=== PATIENT | male | born 1940 | race Caucasian/White ===

== ENCOUNTER 2017-08-14 10:31 | Inpatient (IN) | payer OTHER ==
--- NOTE | 2017-08-14 11:20 | EDPHY ---
H & P Stated Complaint: Weakness for last 2 weeks and fell last night not able to get up HPI/ROS: CHIEF COMPLAINT: Weakness, fall HISTORY OF PRESENT ILLNESS: The patient is a 77 y/o male arriving via EMS complaining of weakness and a fall 2 days ago with prolonged down time. He was ill 2 weeks ago and was seen at [facility]; they told him he may have pneumonia or influenza and prescribed him pain medication to help with pleurisy and home O2 for shortness of breath. Two days ago he stood up from the couch and his legs were so weak he collapsed. He has been on the floor for almost 48 hours until he was found by bystanders today. He was able to crawl around somewhat and reached his open back door and yelled whenever he heard someone nearby until he was found. He has not eaten or used any of his medications during this time. He currently feels extremely weak and as if his breathing is "raspy". He complains of some coccyx pain and also states he and hasn't had a bowel movement for 4 days. His chronic lumbar back pain feels worse as well. He denies vomiting, diarrhea, fever, abdominal pain, headache, unilateral weakness or numbness. REVIEW OF SYSTEMS: A ten point review of systems was performed and is negative with the exception of the items mentioned in the HPI. Past medical history: 1. Hypertension 2. Anemia 3. Diabetes - insulin dependent 4. Hypercholesterolemia 5. RI 2011 6. GERD 7. Back pain Past surgical history: 1. Retinal surgery 2. Orthopedic surgery right arm 3. LAD stent Family history: Noncontributory Social history: Former smoker 35 years ago. PCP: [facility] Prior medical records reviewed including cardiology notes 02/01/12 for RI. General Appearance: Alert. Vital signs reviewed. Blood pressure 170/90, pulse ox 90%. Head: Normocephalic atraumatic. Eyes: Pupils equal and round, no conjunctival injection, no discharge. Anicteric. ENT, Mouth: Mucous membranes are dry, no oropharyngeal erythema or edema. Neck: No lymphadenopathy, supple. Trachea midline. Respiratory: Lungs are have rales at the right base. No wheezes. Cardiovascular: Regular rate and rhythm; no murmur, rub, or gallop. Gastrointestinal: Abdomen is soft, mild RUQ tenderness, no masses or organomegaly, bowel sounds normal. Rectal: Good tone, hard stool in rectal vault, no rikki blood. Skin: Warm and dry, no rashes on exposed skin, normal color. Back: Abrasion on both sides of coccyx. Tenderness over lumbar spine, which patient reports is baseline for him. No CVAT. Extremities: Abrasion to anterior distal right tibia, abrasion right knee, abrasion right foot. No lower extremity edema, no calf tenderness or swelling. Neurological: Alert and oriented. Moving all four extremities, but reduced strength in both legs. Against gravity strength both lower extremities. Facial symmetry. Tongue midline. EOMI. No slurred speech. Psychiatric: Normal affect. - Personal History Current Tetanus/Diphtheria Vaccine: Unsure Current Tetanus Diphtheria and Acellular Pertussis (TDAP): Unsure - Medical/Surgical History Hx Asthma: No Hx Chronic Respiratory Disease: No Hx Diabetes: Yes Hx Cardiac Disease: Yes Hx Renal Disease: No Hx Cirrhosis: No Hx Alcoholism: No Hx HIV/AIDS: No Hx Splenectomy or Spleen Trauma: No Other PMH: RI, Stents, DM - Social History Smoking Status: Former smoker Constitutional: Initial Vital Signs Temperature (C) 35.6 C L 08/14/17 10:30 Heart Rate 102 H 08/14/17 10:30 Respiratory Rate 16 08/14/17 10:30 Blood Pressure 170/90 H 08/14/17 10:30 O2 Sat (%) 90 L 08/14/17 10:30 O2 Delivery Mode Nasal Cannula O2 (L/minute) 5 Allergies/Adverse Reactions: No Known Allergies Allergy (Verified 08/14/17 18:14) Home Medications: Medication Instructions Recorded Aspirin [Aspirin 81mg (OTC)] 81 mg PO DAILY 02/02/12 Furosemide [Lasix 20 MG (RX)] 20 mg PO DAILY 02/02/12 Insulin Glargine [Lantus 100 15 units SC HS 02/02/12 UNITS/ML (RX)] Lisinopril [Zestril 40 mg (RX)] 40 mg PO DAILY 02/02/12 Omeprazole [Prilosec 20 mg] 20 mg PO DAILY@0800 02/02/12 Pravastatin Sodium 40 mg PO HS 02/02/12 amLODIPine BESYLATE [Norvasc 10 mg 10 mg PO DAILY 02/02/12 (RX)] metFORMIN HCL [Glucophage 1000 mg] 1,000 mg PO BID 02/02/12 oxyCODONE/APAP 5325 [Percocet 1 tab PO Q6 PRN 02/02/12 5325 (RX)] Medical Decision Making ED Course/Re-evaluation: This is a 77 y/o male with cardiac disease history and diabetes who was found down today by a good Cheondoism after falling, reportedly due to bilateral leg weakness, 2 days ago. He complains of worsening weakness and dyspnea over the last 2 weeks since possible pneumonia/flu illness, coccyx pain since the fall, and worsening chronic lumbar back pain since the fall. He has superficial abrasions to his right lower leg and alongside his coccyx bilaterally. His lower legs have significantly decreased strength and he is dehydrated. Plan for IV, labs, EKG, chest and lumbar spine x-rays. 1L IV NS administered. Patient will require admission as he is too weak to care for himself at home alone. K elevated at 6.4, creatinine elevated at 2.6, BGL elevated at 346. The 12 lead EKG was interpreted by myself. Sinus rhythm. IVCD. See hard copy and /or "tracemaster" electronic copy for interpretation. Spoke with hospitalist service. Dr. Boogie accepts admission for weakness, hyperglycemia, hyperkalemia, and inability to care for himself at home. Patient received IV fluids in the emergency department for dehydration. He is hyperglycemic and hyperkalemic. He is an insulin-dependent diabetic and will receive insulin. He tells me that he is been diagnosed with a pneumonia within the month. He was started on oxygen at the time of this diagnosis, had not previously used oxygen. His chest x-ray shows what appears to be pneumonia/ atelectasis. It is not clear whether the pneumonia accounts for his hypoxia or whether there is another underlying process such as pulmonary embolus. Given his compromised renal function he cannot undergo CT angiogram. Differential Diagnosis: I considered a differential diagnosis that includes but is not limited to pulmonary infectious process, COPD, asthma, pulmonary embolus and congestive heart failure, rhabdomyolysis, fracture, renal failure acute on chronic. - Data Points Laboratory Results: Laboratory Results 08/14/17 10:30 08/14/17 10:30 Medications Given: Acetaminophen (Tylenol) 650 mg PO Q4HRS PRN PRN Reason: Pain, Mild/Fever, Can Take PO Stop: 02/10/18 13:39 Last Admin: 08/14/17 17:36 Dose: 650 mg Heparin Sodium (Porcine) (Heparin Sc Injection) 5,000 unit SC Q8HRS FARZANA Stop: 02/10/18 13:59 Last Admin: 08/15/17 14:24 Dose: 5,000 unit Azithromycin 500 mg/ Dextrose 255 mls @ 255 mls/hr IV DAILY FARZANA PRN Reason: Protocol Stop: 09/13/17 14:59 Last Admin: 08/15/17 09:54 Dose: 255 mls Ceftriaxone Sodium/Dextrose (Rocephin 1 Gm (Premix)) 50 mls @ 100 mls/hr IV DAILY FARZANA PRN Reason: Protocol Stop: 09/13/17 14:59 Last Admin: 08/15/17 10:08 Dose: 50 mls Dextrose (D5w) 1,000 mls @ 75 mls/hr IV CONT FARZANA Stop: 02/11/18 06:29 Last Admin: 08/15/17 06:35 Dose: 1,000 mls Insulin Glargine (Lantus Syringe) 5 units SC DAILY FARZANA Stop: 02/10/18 13:44 Last Admin: 08/15/17 10:00 Dose: 5 units Insulin Human Lispro (Humalog Lispro) 0 unit SC TIDMEAL FARZANA PRN Reason: Protocol Stop: 02/10/18 17:59 Last Admin: 08/15/17 14:24 Dose: 4 units Polyethylene Glycol (Miralax) 17 gm PO DAILY PRN; Protocol PRN Reason: Constipation, patient prefers Stop: 02/10/18 16:45 Last Admin: 08/14/17 17:54 Dose: 17 gm Senna/Docusate Sodium (Senokot-S) 1 - 2 tab PO BID FARZANA PRN Reason: Protocol Stop: 02/10/18 20:59 Last Admin: 08/15/17 10:01 Dose: 1 tab Discontinued Medications Sodium Chloride (Ns) 1,000 mls @ 0 mls/hr IV EDNOW ONE; Wide Open PRN Reason: Protocol Stop: 08/14/17 11:46 Last Admin: 08/14/17 12:00 Dose: 1,000 mls Sodium Chloride (Ns) 1,000 mls @ 3,000 mls/hr IV ONCE ONE Stop: 08/14/17 13:47 Last Admin: 08/14/17 13:45 Dose: 1,000 mls Sodium Chloride (Ns) 1,000 mls @ 100 mls/hr IV CONT FARZANA Stop: 02/10/18 13:44 Last Admin: 08/14/17 17:54 Dose: 1,000 mls Insulin Human Regular (Humulin R) 5 unit IVP EDNOW ONE Stop: 08/14/17 13:29 Last Admin: 08/14/17 13:45 Dose: 5 units Oxycodone/Acetaminophen (Percocet 5/325) 1 tab PO Q4HRS PRN PRN Reason: Pain, Severe Able to Take PO Stop: 08/25/17 06:14 Last Admin: 08/15/17 06:36 Dose: 1 tab Departure - Departure Disposition: [facility] Inpatient Acute Clinical Impression: Hyperkalemia, Hyperglycemia, Leg weakness, bilateral, Coccyx pain, Dehydration Fall Qualifiers: Encounter type: initial encounter Qualified Code(s): W19.XXXA - Unspecified fall, initial encounter Dyspnea Qualifiers: Dyspnea type: shortness of breath Qualified Code(s): R06.02 - Shortness of breath Condition: Fair Report Scribed for: Piper Alex Report Scribed by: Yue Welch Date of Report: 08/14/17 Time of Report: 11:50 Physician Review and Approval Statement: 08/14/17 11:20 Portions of this note were transcribed by the medical appointment clerk. I, Dr. Piper Alex, personally performed the history, physical exam, and medical decision- making; and confirmed the accuracy of the information in the transcribed note.
[2017-08-14] MEDS ORDERED: NS 1,000 ML IV ONE ×2 (11:45→13:28)
[2017-08-14 12:01] LABS: PLATELET COUNT 232 10^3/uL (150-400)
[2017-08-14 12:04] LABS: CREATINE KINASE 221 IU/L (0-224)
--- NOTE | 2017-08-14 13:13 | CPEKG ---
Heart Rate: 94 RR Interval: 638 P-R Interval: 160 QRSD Interval: 152 QT Interval: 392 QTC Interval: 491 P Sims: 67 QRS Sims: -34 T Wave Sims: 113 EKG Severity - ABNORMAL ECG - EKG Impression: SINUS RHYTHM EKG Impression: PROBABLE LEFT ATRIAL ABNORMALITY EKG Impression: IVCD, CONSIDER ATYPICAL LBBB Electronically Signed By: Piper Alex 14-Aug-2017 14:56:10
[2017-08-14] MEDS ORDERED: INSULIN REGULAR HUMAN 100 UNIT/ML IVP ONE (13:28)
[2017-08-14] MEDS ORDERED: ONDANSETRON 4 MG/2 ML VIAL IVP PRN (13:40)
[2017-08-14] MEDS ORDERED: ACETAMINOPHEN 325 MG TAB PO PRN (13:40)
[2017-08-14] MEDS ORDERED: ONDANSETRON DISINTEGRATING 4 MG TAB PO PRN (13:40)
[2017-08-14] MEDS ORDERED: D50W 25 GM/50 ML SYR IVP PRN (13:45)
[2017-08-14] MEDS ORDERED: NS 1,000 ML IV SCH (13:45)
--- NOTE | 2017-08-14 14:32 | GHP ---
[f rep st] HISTORY AND PHYSICAL DATE OF ADMISSION: 08/14/2017 CHIEF COMPLAINT: Fall, unable to get up. HISTORY OF PRESENT ILLNESS: This is a 77-year-old man with a history of coronary artery disease, sta tus post stents in 2011, who presents with a fall. He tells me that in the few days and weeks leadin g up to the fall he had not been feeling very well, had been treated for pneumonia but completed a co urse of antibiotics. He thinks that he was still coughing 2 days ago when he fell. He describes a m echanical fall where he tripped over something, did not lose consciousness, hit the coffee table on t he way down with his arm blocking his head and did not hit his head. He was unable to get up because he was too weak after the fall. He tells me that his coccyx hurt but it had been hurting prior to t he fall. Nothing new really hurts after the fall. He did not have any preceding chest pain, shortne ss of breath or palpitations either. He did continue to urinate after the fall but not significantly much. He had not been eating or drinking well before the fall either. He tells me that he has had no renal issues in the past. He had recently been placed on oxygen, currently using 2 L, though he w as not using it at the time of the fall either. He follows with a [facility] fish at the [place]. PAST MEDICAL/PAST SURGICAL HISTORY: 1. Hypertension. 2. Anemia. 3. Insulin dependent diabetic. 4. Hyperlipidemia. 5. Coronary artery disease, status post stents in 2011 after an DE. 6. GERD. 7. Back pain. 8. Chronic respiratory failure on 2 L. MEDICATIONS: Please see medication reconciliation. ALLERGIES: None. FAMILY HISTORY: Reviewed and noncontributory. SOCIAL HISTORY: He is a [place] patient. He lives at home by himself. He does not drink or smoke. REVIEW OF SYSTEMS: A 10-point review of systems is conducted and is negative except per HPI. PHYSICAL EXAMINATION: VITAL SIGNS: Blood pressure 128/93, heart rate 90, respiration rate 18, satur ating initially at 90% on 5 L. Temperature is 35.6. GENERAL: The patient is a pleasant man who laurent ears somewhat uncomfortable, lying on his side, in mild distress. HEENT: Shows him to be normocepha lic, atraumatic. There is no clear trauma to his head. CARDIOVASCULAR: Distant S1 and S2 which are hard to hear. I do not appreciate any loud murmurs. PULMONARY: Shows diminished right-sided breat h sounds. ABDOMEN: Shows him to have normal bowel sounds. He is soft nontender, nondistended. SKI N: Shows no rash. No significant trauma. : Shows no L[place]z. NEUROLOGIC: Shows him to be alert and oriented x3. He is moving all extremities. PSYCHIATRIC: Shows a normal mood and affect. LABS: White count is 14.03, with 16% bands and 32% segmented neutrophils. Initial potassium is 6.4, sodium is 145, creatinine is 2.6. His stool occult blood is negative. DATA: EKG, which I personally reviewed and interpreted, shows him to be in sinus rhythm. He has a w idened QRS, approaching left bundle branch block. This was not present on his previous EKG. I do no t appreciate anything acutely ischemic with this, however. IMPRESSION AND PLAN: 1. Fall: It does appear mechanical though his history is not terribly reliable. Troponin was not o rdered in the ED, I have ordered this. We will get an echocardiogram for now, given his new (since 012) EKG abnormalities. If troponin is negative and this is normal, would not workup cardiac etiolog ies any further. 2. Down for 2 days: Unclear why he was so weak. May be progression of a pneumonia. He is quite hy poxic, as his chest x-ray is relatively unremarkable, would consider PE, though will not be able to s can him given his renal failure. We will place him on telemetry and follow him very closely. I have checked a CK as well. 3. Acute renal failure: I think this is likely secondary to poor p.o. intake over the past few days and not likely to be the cause of his initial weakness. He had severe hyperkalemia on presentation, I have given him some IV insulin as his glucose is elevated. He is making urine, this should also r esolve with enough IV fluids, although I do not think he has received sufficient hydration at this po int. I have given him an extra liter of normal saline for now and will reassess. I have also writte n to recheck another basic metabolic panel after the second liter of normal saline. Could consider g iving him bicarb as well since he is acidotic. With an elevated anion gap though, I expect this to a lso resolve. 4. Hypoxia: This is quite marked. Chest x-ray is pending. He does have a chronic oxygen requireme nt of about 2 L but he is up to a 5 L requirement. As above, pulmonary embolism is on the differenti al but will be difficult to fully investigate at this point. 5. Recent pneumonia: He does have a leukocytosis, abnormal pulmonary auscultation. I have checked chest x-ray, as well as procalcitonin. Will strongly consider antibiotics. 6. Diabetes mellitus with hyperglycemia: He has gotten 5 units of insulin intravenously, I will giv e him a slightly low dose of his home glargine and follow closely. Given him sliding scale as well. 7. Hypertension: We will hold his lisinopril and furosemide for now. 8. Will hold his metformin at this point as well. 9. Code status: He would like to be full code though does not want any heroic measures. 10. Venous thromboembolism risk is high. Will give him subcutaneous heparin given his renal failure . /[id number]/MODL
--- NOTE | 2017-08-14 14:55 | PDMN ---
Medical Necessity Medical necessity: Pt meets IP criteria per MD; est los >2 mn for eval/tx of weakness w/inability to get up r/t fall, hypoxia, acute kidney injury & hyperkalemia; admit for further workup/close monitoring, IV insulin, IVFs, possible IV abx, therapies, r/o PE; hx recent pneumonia, CAD s/p stents in 2011 , HTN, chronic respiratory failure, insulin dependent diabetes, anemia; per H&P & order 08/14/17
--- NOTE | 2017-08-14 16:33 | ECHO ---
[email or web address] [address] [address] Main: [phone] Fax: Transthoracic Echocardiogram Name: CHRISTIANA EMMANUEL MR#: [id number] Study Date: 08/14/2017 Study Time: 02:34 PM Date of : 1940 Age: 77 year(s) Height: 182.9 cm (72 in.) Weight: 104.33 kg (230 lb.) BSA: 2.26 m2 Gender: Male Examination: Echo Indication: Fall/Hx HTN/LAD stent Image Quality: Contrast: Requested by: Heber Boogie BP: / Heart Rate: Rhythm: Indication: Fall/Hx HTN/LAD stent Procedure Staff Information Systems Audit Manager: Jennifer Live Reading Physician: Zaid Frausto Requesting Provider: Conclusions: no pericardial effusion. Concentric left ventricular hypertrophy. Ejection fraction 55-60% with septal dyskinesis. Tissue Doppler suggest elevated left ventricular end-diastolic pressure query constriction. Calcification of the mitral valve is seen. There is mild mitral regurgitation. The aortic valve is calcified with mild aortic stenosis and mild aortic regurgitation. Mean gradient is 17 mm of mercury. Mild tricuspid regurgitation with right ventricular systolic pressure of 58 mm of mercury. Measurements: Chambers Valvular Assessment AV/MV Valvular Assessment TV/PV Normal Normal Normal Name Value Range Name Value Range Name Value Range LVDd (2D): 5.6 cm (4.2 cm-5.9 AV meanP mmHg ( - ) TR Vmax: 3.65 mm/s ( - ) cm) LVOT Vmax: 0.89 m/s (0.7 m/s-1.1 TR PGmax: 53 mmHg ( - ) LVOTd 2.2 cm 2.2 cm mm m/s) syst. PAP: 58 mmHg ( - ) EF Range: 55-60 % ZENOBIA (VTI): 1.4 cm ( - ) AR (PHT): 345 ms ( - ) MV E Vmax: 1.79 m/s ( - ) MV PHT: 0.038 s ( - ) MVA (PHT): 5.8 s ( - ) Continued Measurements: Valvular Assessment AV/MV Valvular Assessment TV/PV Name Value Name Value MV DecTime: 155 m/s CVP (est.): 5 mmHg MV E/E' Septal: 59.30 MV E/E' Lateral: 44.80 AR Vmax: 3.78 cm/s Patient: CHRISTIANA EMMANUEL Study Date: 08/14/2017 Page 1 of 2 02:34 PM Additional Vessels Name Value Ao Ascendin.1 cm Findings: Left Ventricle: Normal size left ventricle. Mild concentric LV hypertrophy. Normal global systolic LV function. The ejection fraction is estimated to be 55-60 %. Diastolic dysfunction is present. . Right Ventricle: Normal size right ventricle. Left Atrium: The left atrium is normal in size. Right Atrium: The right atrium is normal in size. Mitral Valve: Moderate mitral valve leaflet calcification is present. Mild mitral valve regurgitation is present. Aortic Valve: Mild calcific aortic valve stenosis. Mild aortic valve regurgitation is present. AV max PG is 29mmHG. AV mean PG is 17mmHG.. Tricuspid Valve: The tricuspid valve appears normal. Mild tricuspid regurgitation is present. The pulmonary artery pressure is mildly increased. RVSP is 58mmHG.. Pulmonic Valve: The pulmonic valve is normal in appearance. Aorta: Normal size ascending aorta measuring 3.1 cm. Exam Comments: Extracardiac structure visualized near RA.. (No Signature Object) Patient: CHRISTIANA EMMANUEL Study Date: 08/14/2017 Page 2 of 2 02:34 PM [id number]
[2017-08-14] MEDS ORDERED: BISACODYL 10 MG SUPP PR PRN (16:46)
[2017-08-14] MEDS ORDERED: LACTULOSE 20 GM/30 ML UDCUP PO PRN (16:46)
[2017-08-14] MEDS ORDERED: POLYETHYLENE GLYCOL 3350 17 GM PKT PO PRN (16:46)
[2017-08-14] MEDS ORDERED: MAGNESIUM HYDROXIDE 30 ML UDCUP PO PRN (16:46)
[2017-08-14] MEDS: INSULIN GLARGINE 100 UNITS/ML SYRINGE SC SCH (17:35)
[2017-08-14] MEDS: HEPARIN 5,000 UNIT/0.5 ML SYR SC SCH (17:35)
[2017-08-14] MEDS: AZITHROMYCIN IV 500 MG in D5W 250 ML IV SCH (17:53)
[2017-08-14] MEDS: INSULIN LISPRO 100 UNIT/ML SC SCH (18:08)
--- NOTE | 2017-08-14 18:10 | WOCRNPDOC ---
WOCRN Advanced Assessment Note - Skin Integrity Problem, Advanced Assess Right Knee Abrasion Dressing Type: Open to Air Exudate Amount: None Wound Bed Constitution: Dried Exudate Site Measurement - Head-to-Toe Length X Width X Depth (cm): 2x1.7x0 Skin Integrity Problem Comment: No concerns. Appears partial thickness but wont be sure until dried exudate is removed. Will hydrate wound. Right Anterior Lower Leg Excoriation Dressing Type: Open to Air Exudate Amount: None Site Measurement - Head-to-Toe Length X Width X Depth (cm): 5x1x0 Skin Integrity Problem Comment: Several small wounds totalling approximately 5 cm. Most are about 0.5x0.5x0.1. No concerns. Bilateral Sacrum Pressure Injury Dressing Type: Open to Air Integumentary Issue Intervention: Dressing Applied Sonali Wound Tissue: Blanching, Erythema, Xerotic Sonali Wound Swelling: None Site Measurement - Head-to-Toe Length X Width X Depth (cm): Left: 2x0.3x0, right : 1.5x0.3x0 Pressure Injury Stage: Stage 1 Pressure Injury Present on Admit: Yes Skin Integrity Problem Comment: Two symmetrical linear non blanching areas on bilateral sacrum. No concerns. Wound care will sign off. Be vigilant that patient may develop a new injury over the next 48-72 hours. Recheck this area and skin in detail QShift and reconsult wound care if there is any new area of "ecchymosis" or erythema different from the ones described. If the patient's tissue was damaged extensively, a Deep Tissue Injury takes 48 to 72 hours to present. Please reconsult if wounds develop/worsen/open.
[2017-08-14] MEDS: SENNOSIDES/DOCUSATE SODIUM TAB PO SCH (20:31)
[2017-08-15] MEDS: HEPARIN 5,000 UNIT/0.5 ML SYR SC SCH ×4 (00:12→21:49)
[2017-08-15 05:50] LABS: PLATELET COUNT 134 10^3/uL (150-400)
[2017-08-15] MEDS ORDERED: OXYCODONE/APAP 5/325 TAB PO PRN (06:15)
[2017-08-15] MEDS ORDERED: D5W 1,000 ML IV SCH (06:30)
[2017-08-15] MEDS ORDERED: ENOXAPARIN 40 MG/0.4 ML SYR SC SCH (09:00)
[2017-08-15] MEDS: AZITHROMYCIN IV 500 MG in D5W 250 ML IV SCH (09:54)
[2017-08-15] MEDS: INSULIN LISPRO 100 UNIT/ML SC SCH ×3 (10:00→18:11)
[2017-08-15] MEDS: INSULIN GLARGINE 100 UNITS/ML SYRINGE SC SCH (10:00)
[2017-08-15] MEDS: SENNOSIDES/DOCUSATE SODIUM TAB PO SCH ×2 (10:01→20:51)
--- NOTE | 2017-08-15 11:34 | ASMTCMCOM ---
CM Note CM Note Notes: Pt admitted after a fall - stated he tripped over something at home and had difficulty getting up 2/2 weakness. He recently was diagnosed with PNA and was on ABX. Pt lives in a trailer in [place] and has friends and family around. Hx CAD. Agreeable to SNF d/c. Discussed options - he would like to stay in [place] and felt that [facility] was the most convenient. Sent referrals to [facility] and [facility]. PASRR done. CM will continue to follow for any d/c needs. Date Signed: 08/15/2017 11:34 AM Electronically Signed By:ALAN Lux
--- NOTE | 2017-08-15 13:22 | HOSPPROG ---
Hospitalist Progress Note Assessment/Plan: 77 yo M a/w mechanical fall, DAVID, possible R sided pneumonia and profound weakness david: ck normal improving w IVF suspect pre renal not on diuretics as outpt pneumonia: concern for postobstructive given failure to clear (by history) continue abx needs CT cosmetic assembler eval indet trop: no focal wma on echo follow weakness: s/o profound deconditioning and intercurrent illness will need snf proph: sc heparin status: inpt Subjective: profoundly weak. cxr w r sided pneumonia, possible mass (interp by me) Objective: Vital Signs Temp Pulse Resp BP Pulse Ox 36.4 C 91 20 132/64 H 91 L 08/15/17 11:18 08/15/17 11:18 08/15/17 11:18 08/15/17 11:18 08/15/17 11:18 Microbiology 08/14/17 16:10 Respiratory Panel (PCR) - Final Nasal, Sinus - Anaerobic Tube/Swab No Organism Detected Laboratory Results 08/15/17 05:40 08/15/17 12:20 08/14/17 08/15/17 08/16/17 05:59 05:59 05:59 Intake Total 7321.7 300 Output Total 250 Balance 7071.7 300 - Physical Exam Constitutional: no apparent distress, No appears nourished Eyes: PERRL, anicteric sclera Ears, Nose, Mouth, Throat: moist mucous membranes, hearing normal Cardiovascular: regular rate and rhythym, no murmur, rub, or gallop Respiratory: other (poor qulaity exam. good air movement, no wheeze) Gastrointestinal: normoactive bowel sounds, soft, non-tender abdomen Genitourinary: No serrano in urethra Skin: warm, normal color Musculoskeletal: no muscle tenderness, normal joint ROM, No full muscle strength Neurologic: No AAOx3 Psychiatric: interacting appropriately ICD10 Worksheet Patient Problems: Problems Problem Status Onset Coccyx pain Acute Dehydration Acute Dyspnea Acute Fall Acute Hyperglycemia Acute Hyperkalemia Acute Leg weakness, bilateral Acute
[2017-08-15] MEDS: PRAVASTATIN SODIUM 40 MG TAB PO SCH (20:07)
[2017-08-15] MEDS: OXYCODONE/APAP 5/325 TAB PO PRN (20:08)
[2017-08-15] MEDS ORDERED: INSULIN GLARGINE 100 UNITS/ML SYRINGE SC SCH (21:00)
[2017-08-16] MEDS: OXYCODONE/APAP 5/325 TAB PO PRN ×2 (04:36→21:14)
[2017-08-16] MEDS: HEPARIN 5,000 UNIT/0.5 ML SYR SC SCH ×3 (05:08→21:12)
[2017-08-16] MEDS: AZITHROMYCIN IV 500 MG in D5W 250 ML IV SCH (09:43)
[2017-08-16] MEDS: ASPIRIN 81 MG CHEWABLE TAB PO SCH (09:43)
[2017-08-16] MEDS: SENNOSIDES/DOCUSATE SODIUM TAB PO SCH ×2 (09:43→21:12)
[2017-08-16] MEDS: INSULIN LISPRO 100 UNIT/ML SC SCH ×3 (09:56→17:52)
--- NOTE | 2017-08-16 14:48 | HOSPPROG ---
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 and qrs now wider than 01/26 (interp by me) Objective: Vital Signs Temp Pulse Resp BP Pulse Ox 36.6 C 87 21 H 119/69 91 L 08/16/17 11:30 08/16/17 11:30 08/16/17 11:30 08/16/17 11:30 08/16/17 11:30 Laboratory Results 08/15/17 05:40 08/16/17 06:00 08/15/17 08/16/17 08/17/17 05:59 05:59 05:59 Intake Total 7321.7 2150 300 Output Total 650 350 375 Balance 6671.7 1800 -75 - Physical Exam Constitutional: no apparent distress, appears nourished Eyes: PERRL, anicteric sclera Ears, Nose, Mouth, Throat: moist mucous membranes, hearing normal Cardiovascular: regular rate and rhythym, no murmur, rub, or gallop Respiratory: no respiratory distress, no rales or rhonchi, other (R sided crackles) Gastrointestinal: normoactive bowel sounds, soft, non-tender abdomen Genitourinary: No serrano in urethra Skin: warm, normal color Musculoskeletal: full muscle strength, no muscle tenderness Neurologic: AAOx3 ICD10 Worksheet Patient Problems: Problems Problem Status Onset Coccyx pain Acute Dehydration Acute Dyspnea Acute Fall Acute Hyperglycemia Acute Hyperkalemia Acute Leg weakness, bilateral Acute
--- NOTE | 2017-08-16 16:07 | ASMTCMCOM ---
CM Note CM Note Notes: 08/16/2017 Case Management Note Pt accepted to [facility]. Case Management d/c poc: to [facility] when medically stable. Case Management to follow. Date Signed: 08/16/2017 04:07 PM Electronically Signed By:Adriana Gilmore RN
[2017-08-16] MEDS: INSULIN GLARGINE 100 UNITS/ML SYRINGE SC SCH (21:12)
[2017-08-16] MEDS: PRAVASTATIN SODIUM 40 MG TAB PO SCH (21:14)
[2017-08-17] MEDS: HEPARIN 5,000 UNIT/0.5 ML SYR SC SCH ×2 (06:02→14:41)
[2017-08-17 07:35] LABS: PLATELET COUNT 87 10^3/uL (150-400)
[2017-08-17] MEDS: AZITHROMYCIN IV 500 MG in D5W 250 ML IV SCH (08:42)
[2017-08-17] MEDS: SENNOSIDES/DOCUSATE SODIUM TAB PO SCH ×2 (08:42→20:30)
[2017-08-17] MEDS: ASPIRIN 81 MG CHEWABLE TAB PO SCH (08:43)
[2017-08-17] MEDS: INSULIN LISPRO 100 UNIT/ML SC SCH ×3 (10:10→18:42)
--- NOTE | 2017-08-17 11:59 | CPEKG ---
Heart Rate: 100 RR Interval: 600 P-R Interval: 160 QRSD Interval: 152 QT Interval: 380 QTC Interval: 491 P [place]: 57 QRS [place]: -36 T Wave [place]: 86 EKG Severity - ABNORMAL ECG - EKG Impression: SINUS TACHYCARDIA EKG Impression: IVCD, CONSIDER ATYPICAL LBBB Electronically Signed By: Jayson Mendez 18-Aug-2017 12:35:49
[2017-08-17] MEDS ORDERED: IOPAMIDOL (ISOVUE-300) 100 ML BTL ONE (13:11)
--- NOTE | 2017-08-17 13:27 | HOSPPROG ---
Hospitalist Progress Note Assessment/Plan: 77 yo M a/w mechanical fall, DAVID, possible R sided pneumonia and profound weakness david: ck normal volume resuscitated trending towards normal pneumonia: concern for postobstructive given failure to clear (by history) continue ceftriaxone/azithro chest CT today indet trop: known LAD STEMI / flat h/o cad on asa/cad weakness: s/o profound deconditioning and intercurrent illness will need snf encephalopathy: clearing did poorly on cog eval w SSRS REPORT DEVELOPER proph: sc heparin status: inpt Subjective: ekg w ivcd (interp by me) Objective: Vital Signs Temp Pulse Resp BP Pulse Ox 36.6 C 103 H 24 H 137/77 H 87 L 08/17/17 11:34 08/17/17 11:34 08/17/17 11:34 08/17/17 11:34 08/17/17 11:34 Laboratory Results 08/17/17 07:05 08/17/17 07:05 08/16/17 08/17/17 08/18/17 05:59 05:59 05:59 Intake Total 2150 675 500 Output Total 350 575 275 Balance 1800 100 225 - Physical Exam Constitutional: other (more alert) Eyes: PERRL, anicteric sclera Ears, Nose, Mouth, Throat: moist mucous membranes, hearing normal Cardiovascular: regular rate and rhythym, no murmur, rub, or gallop, No systolic murmur Respiratory: no respiratory distress, no rales or rhonchi Gastrointestinal: normoactive bowel sounds, soft, non-tender abdomen Genitourinary: no bladder fullness, No serrano in urethra Skin: warm, normal color Musculoskeletal: No full muscle strength Neurologic: AAOx3 Psychiatric: interacting appropriately ICD10 Worksheet Patient Problems: Problems Problem Status Onset Coccyx pain Acute Dehydration Acute Dyspnea Acute Fall Acute Hyperglycemia Acute Hyperkalemia Acute Leg weakness, bilateral Acute
[2017-08-17 15:56] LABS: INR 1.24 (0.83-1.16); PROTIME(PATIENT) 15.8 SEC (12.0-15.0)
[2017-08-17] MEDS ORDERED: LIDOCAINE 1% 300 MG/30 ML SDV ONE (16:02)
[2017-08-17] MEDS: PRAVASTATIN SODIUM 40 MG TAB PO SCH (20:30)
[2017-08-17] MEDS: INSULIN GLARGINE 100 UNITS/ML SYRINGE SC SCH (20:30)
[2017-08-17] MEDS: IPRATROPIUM/ALBUTEROL 3 ML DEYVIAL IH PRN (21:12)
--- NOTE | 2017-08-17 22:38 | HOSPPROG ---
Hospitalist Progress Note Assessment/Plan: Called to bedside for increased O2 requirements, currently 90% on 15L oxymask. Chart reviewed, admitted for resp failure, weakness, pna, DAVID. Today, s/p thora 1.7L PE: mild/mod resp distress RRR, no MRG quiet R lung sounds, rales, L side relatively clear abd S, NT, ND CXR - full R hilum/RML consolidation ABG - low pO2, acid base ok Impression: 1. resp failure: multifactorial from pneumonia, atelectasis, cannot r/o PE 2. DAVID 3. possible lymphoma with CT findings and elevated LDH 4. weakness Plan: 1. transfer to SDU - if worsens may need intubation 2. BIPAP given R lobe collapse 3. check LE US 4. consider empiric steroids - watch for TLS with DAVID 5. consider pulm consult 45 mins cc time Objective: Vital Signs Temp Pulse Resp BP Pulse Ox 36.6 C 98 15 124/75 H 88 L 08/17/17 21:43 08/17/17 21:43 08/17/17 21:43 08/17/17 21:43 08/17/17 21:43 Microbiology 08/17/17 17:57 Gram Stain - Final Pleural Fluid - Aspirate Laboratory Results 08/17/17 07:05 08/17/17 07:05 08/16/17 08/17/17 08/18/17 05:59 05:59 05:59 Intake Total 2150 675 500 Output Total 424 054 6287 Balance 1800 100 -1825 PT 15.8 SEC (12.0-15.0) H 08/17/17 15:20 INR 1.24 (0.83-1.16) H 08/17/17 15:20 ICD10 Worksheet Patient Problems: Problems Problem Status Onset Hyperkalemia Acute Hyperglycemia Acute Leg weakness, bilateral Acute Fall Acute Dyspnea Acute Coccyx pain Acute Dehydration Acute
--- NOTE | 2017-08-18 08:58 | HOSPPROG ---
Hospitalist Progress Note Assessment/Plan: 77 yo M a/w mechanical fall, DAVID, possible R sided pneumonia and profound weakness. pleural effusion: unexpectedly low pH c/w empyema given LAD and remarkably high LDH< concern for malignant effusion cytology sent 1. chest tube- d/w surgery 2. send fluid for flow cytometry 3. oncology eval 4. 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 case d/w dr houston, dr cedillo. pleural fluid pH 6.5 Objective: Vital Signs Temp Pulse Resp BP Pulse Ox 37.1 C 100 25 H 139/70 H 91 L 08/18/17 07:42 08/18/17 07:42 08/18/17 07:42 08/18/17 07:42 08/18/17 07:42 Microbiology 08/17/17 17:57 Gram Stain - Final Pleural Fluid - Aspirate Laboratory Results 08/18/17 04:10 08/18/17 04:10 08/17/17 08/18/17 08/19/17 05:59 05:59 05:59 Intake Total 675 500 Output Total 575 2925 Balance 100 -2425 PT 15.8 SEC (12.0-15.0) H 08/17/17 15:20 INR 1.24 (0.83-1.16) H 08/17/17 15:20 - Physical Exam Constitutional: no apparent distress, appears nourished, chronically ill appearing Eyes: PERRL, anicteric sclera Ears, Nose, Mouth, Throat: moist mucous membranes, hearing normal Cardiovascular: regular rate and rhythym, no murmur, rub, or gallop Respiratory: no respiratory distress, other (decreased but improved R sided breath sounds. no wheeze) Gastrointestinal: normoactive bowel sounds, soft, non-tender abdomen Genitourinary: no bladder fullness, No serrano in urethra Skin: warm, normal color Musculoskeletal: full muscle strength Neurologic: AAOx3 ICD10 Worksheet Patient Problems: Problems Problem Status Onset Coccyx pain Acute Dehydration Acute Dyspnea Acute Fall Acute Hyperglycemia Acute Hyperkalemia Acute Leg weakness, bilateral Acute
[2017-08-18] MEDS: AZITHROMYCIN IV 500 MG in D5W 250 ML IV SCH (09:45)
[2017-08-18] MEDS: CEFEPIME HCL 2 GM in NS 100 ML IV SCH ×2 (09:45→20:26)
[2017-08-18] MEDS: INSULIN LISPRO 100 UNIT/ML SC SCH ×3 (09:45→17:22)
[2017-08-18] MEDS: SENNOSIDES/DOCUSATE SODIUM TAB PO SCH ×2 (09:46→20:34)
[2017-08-18] MEDS: ASPIRIN 81 MG CHEWABLE TAB PO SCH (09:46)
[2017-08-18] MEDS ORDERED: LIDOCAINE 1% *Not for Epidural 20 ML MDV NB ONE (10:53)
[2017-08-18] MEDS ORDERED: LIDOCAINE 1% 300 MG/30 ML SDV ONE (10:53)
[2017-08-18] MEDS ORDERED: LIDOCAINE 1% 300 MG/30 ML SDV IF ONE (11:30)
--- NOTE | 2017-08-18 13:28 | GPN ---
[f rep st] PROCEDURE NOTE DATE OF PROCEDURE: 08/18/2017 ANESTHESIA: 1% lidocaine. PREOPERATIVE DIAGNOSIS: Right pleural effusion. POSTPROCEDURE DIAGNOSIS: Right pleural effusion. PROCEDURE PERFORMED: Right chest tube thoracostomy. FINDINGS: 1.1 L of serous fluid. SPECIMENS: None. ESTIMATED BLOOD LOSS: 5 mL. INDICATIONS: This patient is a 77-year-old man who has had increasing difficulty with respirations. He was found to have a large right pleural effusion. Chest tube was indicated. DESCRIPTION OF PROCEDURE: The patient was in the ICU. His right arm was above his chest. I prepped his chest with chlorhexidine and draped it in the usual sterile fashion. I infiltrated the area with 20 mL of 1% lidocaine and made an incision over approximately the sixth r ib space. I dissected down over the rib. I then penetrated into the pleural cavity with a large riddhi h of fluid. I directed a 28-Irish chest tube apically. I connected this to the Pleur-Evac. It was sutured into place with 0 silk. A chest tube dressing was applied. The chest tube was placed to suction. /[id number]/MODL
[2017-08-18] MEDS: IPRATROPIUM/ALBUTEROL 3 ML DEYVIAL IH PRN (15:40)
--- NOTE | 2017-08-18 16:24 | ASMTCMCOM ---
CM Note CM Note Notes: Plan continues to be to discharge to [facility]. Date Signed: 08/18/2017 04:24 PM Electronically Signed By:Mary Hendrix LCSW
[2017-08-18] MEDS ORDERED: FUROSEMIDE 20 MG/2 ML VIAL IVP ONE ×2 (16:50→21:20)
[2017-08-18 18:37] LABS: INR 1.33 (0.83-1.16); PROTIME(PATIENT) 16.7 SEC (12.0-15.0)
[2017-08-18 18:43] LABS: PLATELET COUNT 53 10^3/uL (150-400)
[2017-08-18] MEDS: INSULIN GLARGINE 100 UNITS/ML SYRINGE SC SCH (20:26)
[2017-08-18] MEDS: PRAVASTATIN SODIUM 40 MG TAB PO SCH (20:34)
--- NOTE | 2017-08-18 20:35 | GCON ---
[f rep st] CONSULTATION NEW PATIENT CONSULTATION REFERRING PHYSICIAN: Kyree Ziegler MD REASON FOR CONSULTATION: Pleural effusion and mediastinal lymphadenopathy. HISTORY OF PRESENT ILLNESS: The patient is a 77-year-old gentleman with a history of coronary artery disease, diabetes, and history of chronic respiratory failure, who presented with a fall. His history is taken per self this evening and is somewhat unreliable; patient not answering all questions. He states that he is lost some weight over the past several weeks and states he has had chronic issues with his lungs, but recently got acutely worse. He also reports he was treated more recently for a pneumonia. Hypoxemia was quite marked when he presented to the ED, requiring 5 L. He was diagnosed with acute kidney injury, pneumonia, indeterminate troponin, and weakness. As far as the pneumonia, there was concern for a postobstructive process, given failure to clear. He has been started on antibiotics, but did get a CT of his chest, which was performed on 08/17/2017. This shows right hilar infracarinal and anterior mediastinal adenopathy. The infracarinal lymph node measures 5.2 x 3.5 cm and appears to encase the right lower lobe bronchus. Prevascular lymphadenopathy is identified on the right measuring 3.7 x 3.5 cm and on the left, 2.8 x 5.0 cm. He had a worsening large right pleural effusion with severe atelectasis of the right lung. Patient had the effusion tapped with unexpectedly low pH, consistent with empyema. He had a chest tube placed, and over 2 L of fluid have been removed. Fluid has been sent for cytology. His antibiotics have been broadened. Patient reports that he has had some night sweats, and weight loss is a concern. He lives alone and states that he is able to take care of himself, which is clearly not the case currently. REVIEW OF SYSTEMS: As per HPI. Otherwise, denies any other new issues, although again, poor historian. PAST MEDICAL HISTORY: 1. Hypertension. 2. Anemia. 3. Insulin-dependent diabetic. 4. Hyperlipidemia. 5. Coronary artery disease, status post stents in 2011 after an [facility]. 6. GERD. 7. Back pain. 8. Chronic respiratory failure on 2 L. MEDICATION: Please see med rec. ALLERGIES: None. FAMILY HISTORY: Reviewed and noncontributory. SOCIAL HISTORY: [facility] patient. Lives at home by himself. Does not drink or smoke. PHYSICAL EXAM: VITAL SIGNS: Today show blood pressure 136/64, heart rate is 103, respiration rate 31, saturating 92% on 10-15 L by OxyMask, temp 37.1. GENERAL: Elderly gentleman, frail and chronically ill-appearing, not in acute distress. HEENT: Anicteric. Oropharynx: Dry mucous membranes. No petechiae. HEART: Tachycardic. LUNGS: Coarse rhonchi bilaterally. Chest tube in right chest. ABDOMEN: Soft, nontender. Difficult to appreciate a spleen, given the patient's positioning. No enlarged liver. LYMPH NODES: No axillary, supraclavicular, inguinal lymphadenopathy. LOWER EXTREMITIES: No significant edema. SKIN: Occasional bruising, but no petechiae or other purpura. NEUROLOGIC: The patient is A and O x2. He does not know the year, and somewhat delirious with circumferential speech. LABS: Hemoglobin 10.2, hematocrit 32.5, white blood cell 4.7, platelet count of 61,000. INR 1.2. Most recent CO2 of 28, sodium 148, BUN 52, creatinine 1.6 , calcium 8.8. LDH is greater than 10,000. Pleural fluid with very high LDH above 7000 with predominant lymphocytes on white blood cell differential. Cytology is pending. ASSESSMENT AND PLAN: A 77-year-old gentleman with the above-mentioned past medical history who presents with a right-sided pleural effusion, possibly postobstructive with noted mediastinal lymphadenopathy on imaging and very high LDH. 1. Lymphadenopathy and pleural effusion. Agree there is concern of a malignant process, possibly lymphoma with LDH greater than 10,000. Cytology is pending. Cytology will be somewhat helpful, although to make a confirmatory diagnosis, really do need a complete lymph node for architectural analysis. At least, we would need a core needle biopsy. At this time, there are limited lymph nodes around the mediastinum that would warrant a CME for definitive diagnosis. I think I may favor adding an abdomen and pelvis CT tomorrow to evaluate for any other areas that might be more amenable to biopsy. 2. Pleural effusion related to #1. A chest tube in place. Cytology and cultures pending. He is on broad-spectrum antibiotics. Do feel concern this is related to an underlying malignant process. Has a long history of smoking which puts him at risk for lung ca, but certainly could also be a lymphoma. 3. Thrombocytopenia, unclear etiology. Not currently on heparin products, possibly due to fall risk, so not sure any evidence of heparin-induced thrombocytopenia, and checking a disseminated intravascular coagulation panel and will monitor. Possibly related to antibiotics. Notably, he presented with normal platelet count. 4. Anemia. Iron studies. Likely multifactorial. 5. Delirium versus altered mental status. Difficult to believe he was functioning at home. I think it is worth a CT head to evaluate if this is encephalopathy or a structural issue. We will continue to follow along. More than 45 minutes was spent with the patient as well as time counseling and coordinating care, discussion with Dr. Gomez as well as Dr. Ziegler. /[id number]/MODL MTDD
--- NOTE | 2017-08-18 21:14 | HOSPPROG ---
Hospitalist Progress Note Assessment/Plan: Called to bedside for increased work of breathing. Has been off Bipap today. Concern for possible malignant effusion. Thoracentesis done 08/17/17, but reaccumulated, so right-sided chest tube placed today. Per RN, more confused this evening. S: he c/o SOB Gen: uncomfortable in bed, restless HEENT: dry MM CV: tachy, regular Lungs: crackles at bases, R>L. Using accessory muscles Musk: moving all extremities Neuro: no deficits Psych: alert to place, year #Acute hypoxic resp failure -has been on 15L oxymask today. Restart Bipap. Stat CXR, ABG. May need additional Lasix #DAVID: Cr 1.6. Will have to monitor closely with diuresis Critical care time spent: 30 min bedside evaluating pt, reviewing imaging, labs Objective: Vital Signs Temp Pulse Resp BP Pulse Ox 37.3 C 106 H 29 H 146/81 H 98 08/18/17 16:00 08/18/17 16:00 08/18/17 16:00 08/18/17 16:00 08/18/17 16:00 Microbiology 08/17/17 17:57 Gram Stain - Final Pleural Fluid - Aspirate Laboratory Results 08/18/17 18:15 08/18/17 04:10 08/17/17 08/18/17 08/19/17 05:59 05:59 05:59 Intake Total 675 500 800 Output Total 575 2925 1800 Balance 100 -2425 -1000 PT 16.7 SEC (12.0-15.0) H 08/18/17 18:15 INR 1.33 (0.83-1.16) H 08/18/17 18:15 ICD10 Worksheet Patient Problems: Problems Problem Status Onset Coccyx pain Acute Dehydration Acute Dyspnea Acute Fall Acute Hyperglycemia Acute Hyperkalemia Acute Leg weakness, bilateral Acute
[2017-08-19] MEDS: INSULIN LISPRO 100 UNIT/ML SC SCH ×3 (08:14→17:50)
--- NOTE | 2017-08-19 08:19 | HOSPPROG ---
Hospitalist Progress Note Assessment/Plan: 77 yo M with mechanical fall, DAVID, possible R sided pneumonia and profound weakness. AHRF: Secondary to right hilar mass / pl effusion / poss post-obstructive PNA. 15 LPM, required brief bipap last night pulm consult, may require intubation prn bipap STAT CXR, abg this am pleural effusion: low pH c/w empyema, concern for malignant effusion with increased LDH, cytology pending. Chest tube placed 1/2 due to re-accumulation after thora. Pleural fluid Cx ngtd. Oncology following. cont chest tube, management per surg cont cefepime await cytology right hilar mass - concern for lymphoma. need tissue diagnosis. CT abd/pelvis without contrast to eval for biopsy source pneumonia: concern for postobstructive infection. BCxs neg. continue cefepime david: Cr 2.6 --> 1.9. ck normal volume resuscitated cont to follow thrombocytopenia: received heparin starting 08/14. plts 232 --> 53 send HIT Ab hyperkalemia; suspect volume depletion recheck now, rectal kayexalate, bicarb if persists elevated ekg now, peaked T's on tele noted hydrate hypernatremia: poor oral intake. Did not respond to 1/2 NS today change fluids to D5W, recheck this evening indet trop: known LAD STEMI 01/26, trop flat on asa/cad cards to weigh in weakness: s/o profound deconditioning and intercurrent illness will need snf encephalopathy: clearing did poorly on cog eval w BANQUET DIRECTOR proph: sc heparin on hold status: inpt / ICU 30 minutes critical care Subjective: Pt is dyspneic. Denies CP. No fevers. Not mentating well enough to take PO. Objective: Vital Signs Temp Pulse Resp BP Pulse Ox 36.8 C 107 H 28 H 141/73 H 92 08/19/17 07:47 08/19/17 07:47 08/19/17 07:47 08/19/17 07:47 08/19/17 07:47 Microbiology 08/17/17 17:57 Gram Stain - Final Pleural Fluid - Aspirate Laboratory Results 08/19/17 02:55 08/19/17 02:55 08/18/17 08/19/17 08/20/17 05:59 05:59 05:59 Intake Total 500 1137 Output Total 2925 2400 Balance -2425 -1261 PT 16.7 SEC (12.0-15.0) H 08/18/17 18:15 INR 1.33 (0.83-1.16) H 08/18/17 18:15 - Physical Exam Constitutional: no apparent distress Eyes: PERRL Ears, Nose, Mouth, Throat: moist mucous membranes Cardiovascular: regular rate and rhythym Respiratory: reduced air movement, bronchial breath sounds, respiratory distress Gastrointestinal: normoactive bowel sounds, soft, non-tender abdomen Skin: warm Musculoskeletal: generalized weakness Psychiatric: encephalopathic ICD10 Worksheet Patient Problems: Problems Problem Status Onset Coccyx pain Acute Dehydration Acute Dyspnea Acute Fall Acute Hyperglycemia Acute Hyperkalemia Acute Leg weakness, bilateral Acute
[2017-08-19] MEDS ORDERED: 1/2 NS 1,000 ML IV SCH (08:45)
--- NOTE | 2017-08-19 08:53 | CPEKG ---
Heart Rate: 106 RR Interval: 566 P-R Interval: 156 QRSD Interval: 144 QT Interval: 376 QTC Interval: 500 P [place]: 52 QRS [place]: -28 T Wave [place]: 109 EKG Severity - ABNORMAL ECG - EKG Impression: SINUS TACHYCARDIA EKG Impression: PROBABLE LEFT ATRIAL ABNORMALITY EKG Impression: LEFT BUNDLE BRANCH BLOCK Electronically Signed By: Jayson Mendez 19-Aug-2017 14:49:44
[2017-08-19] MEDS: CEFEPIME HCL 2 GM in NS 100 ML IV SCH ×2 (08:58→21:54)
[2017-08-19] MEDS: ASPIRIN 81 MG CHEWABLE TAB PO SCH (09:03)
[2017-08-19] MEDS: SENNOSIDES/DOCUSATE SODIUM TAB PO SCH ×3 (09:03→21:54)
--- NOTE | 2017-08-19 09:41 | PDINTPN ---
Air Hammer Stripper Progress Note Assessment/Plan: Assessment: Pleural effusion: pH Low. Continues to drain a large amount of serosanguinous fluid. Well-drained by CXR. Cytology and flow cytometry pending. Likely lymphoma vs. pneumonia. DAVID: Cr up today, urine output low. Hypernatremia Hyperkalemia: Rising. Likely due to DAVID, reduced urine output. NAG metabolic acidosis: Worsening on ABG. Plan: Will give hypotonic fluids, HCO3 and recheck BMP. Await cytology/flow cytometry. Check CT head. 08/19/17 09:53 Subjective: Denies pain, dyspnea Objective: Vital Signs Temp Pulse Resp BP Pulse Ox 36.8 C 107 H 28 H 141/73 H 94 08/19/17 07:47 08/19/17 07:47 08/19/17 07:47 08/19/17 07:47 08/19/17 08:52 Microbiology 08/17/17 17:57 Gram Stain - Final Pleural Fluid - Aspirate Laboratory Results 08/19/17 02:55 08/19/17 08:58 08/18/17 08/19/17 08/20/17 05:59 05:59 05:59 Intake Total 500 1137 Output Total 2925 2400 Balance -2425 -1263 PT 16.7 SEC (12.0-15.0) H 08/18/17 18:15 INR 1.33 (0.83-1.16) H 08/18/17 18:15 CXR: Effusion well drained. Image reviewed by me. Laboratory Tests 08/19/17 08:41 pCO2 23 L pO2 62 L Total CO2 15 L ABG pH 7.42 ABG HCO3 14 L Physical Exam - Physical Exam General Appearance: No alert (eyes closed, responds with short answers to direct questions.) EENT: normal ENT inspection Neck: normal inspection Respiratory: crackles (right>left) Cardiac/Chest: regular rate, rhythm, No edema Abdomen: normal bowel sounds, non-tender Skin: normal color, warm/dry Extremities: normal inspection Neuro/Psych: No alert (responds weakly to direct questions, not reliably following commands.), No normal mood/affect, No oriented x 3, No motor weakness ICD10 Worksheet Patient Problems: Problems Problem Status Onset Coccyx pain Acute Dehydration Acute Dyspnea Acute Fall Acute Hyperglycemia Acute Hyperkalemia Acute Leg weakness, bilateral Acute
[2017-08-19] MEDS ORDERED: SODIUM BICARBONATE 50 MEQ/50 ML SYR IVP ONE (09:54)
[2017-08-19] MEDS ORDERED: SODIUM POLY SULF 15 GM/60 ML BOTTLE PO ONE (09:54)
--- NOTE | 2017-08-19 10:27 | GCON ---
[f rep st] CONSULTATION PULMONARY/CRITICAL CARE CONSULTATION DATED JUNE 18 REFERRING PROVIDER LAMAR SAVAGE. DATE OF CONSULTATION: 08/18/2017 REFERRING PHYSICIAN: Lamar Savage MD REASON FOR REFERRAL: Evaluation and management of pleural effusion and respiratory distress. HISTORY: The patient is a 77-year-old male with a history of coronary artery disease status post corey nting, who was admitted on August 14, 2017 with several days of feeling poorly. He had apparently been treated as an outpatient for pneumonia, but still had coughing. He had a fall 2 days prior to a dmission. He had a fall, which sounds like it was mechanical. He was unable to get up for 2 days be cause of significant weakness. When he was admitted on August 14, he had acute renal insufficiency with a creatinine of 2.6, and also had a significant hypoxemia. He was found to have a large pleura l effusion that had increased in size over the 1st few days of hospitalization. A thoracentesis was performed on August 17, 2017, with removal of 1700 cc of serosanguineous fluid. PH in this fluid cam e back at 6.5, and so earlier today a chest tube was placed. The patient reports that he has no sign ificant chest pain, but does feel a bit short of breath. He continues to feel quite weak. He denies cough. PAST MEDICAL HISTORY: 1. Coronary artery disease status post stenting. 2. Hypertension. 3. History of anemia. 4. Diabetes. 5. Hyperlipidemia. 6. GERD. 7. Chronic respiratory insufficiency, on supplemental oxygen at home. MEDICATIONS: At the time of admission include Percocet, Norvasc, Prilosec, Lasix, Glucophage, aspiri n, insulin, and lisinopril. ALLERGIES: None. SOCIAL HISTORY: The patient lives at home by himself. He denies alcohol. He used to smoke in the p ast, but is unable to quantify this. FAMILY HISTORY: Unremarkable. REVIEW OF SYSTEMS: A 10-point review of systems adds nothing to the history of present illness. PHYSICAL EXAMINATION: GENERAL: The patient is awake and alert. He is in mild respiratory distress. VITAL SIGNS: His blood pressure is 146/81 with a heart rate of 106, oxygen saturations are 98% on 15 L of oxygen. HEENT: Normocephalic and atraumatic. No icterus. NECK: No JVD. Trachea is midli ne. CHEST: Some decreased breath sounds on the right with basilar rales. CARDIAC: Regular tachyca rdia without murmur. ABDOMEN: Soft, nontender. Bowel sounds are present. EXTREMITIES: No clubbin g, cyanosis, or edema. NEURO: The patient is awake and alert. He is somewhat disoriented in terms of time and place. He is able to move all extremities symmetrically without any gross motor weakness . LABORATORY: Creatinine is 1.6, down from 2.6 at the time of admission. Sodium is 148, up from 145 a t admission. Potassium is 5.1. Serum ferritin level is greater than 10,000. A serum LDH is greater than 10,000. White blood count is 4.7 with a hemoglobin of 10.2. Platelet count is 61,000, down fr om 232,000 at admission. The patient has 14% bands. An INR is 1.3. Pleural fluid shows 36% lymphoc ytes and a pleural LDH of 7179. Arterial blood gas shows a pH of 7.39, with a pO2 of 130, a CO2 of 2 8, and a bicarbonate of 17, on BiPAP with a pressure of 14/8 and 100% oxygen. Urinalysis shows hyali ne casts. IMAGING: A chest x-ray showed a significant increase in right pleural effusion prior to the thoracen tesis and chest tube. A current chest x-ray shows good drainage of the pleural fluid. Images review ed by me. A CT scan of the chest from August 17 shows a large right pleural effusion and atelectasis /compression of the right lung, with fairly extensive adenopathy. Images reviewed by me. ASSESSMENT: 1. Large pleural effusion. While this could be parapneumonic, lymphadenopathy and markedly elevated LDH is concerning for the presence of lymphoma, which could also cause his pleural effusion. Curren tly, the effusion is fairly well drained, but the patient continues to be tachypneic. In part, this is likely due to metabolic acidosis. The possibility of pneumonia is currently well covered with IV cefepime. 2. Thrombocytopenia. The patient's platelet count has been dropping during this hospitalization. T here is no evidence of active bleeding. 3. Metabolic acidosis. This is mild and has been present since admission. It could be related to t he patient's renal insufficiency, as his anion gap has been normal. 4. Delirium. This could be related to hospitalization and pain medications, an undiagnosed head inj ury, or a EDUCATION ADMINISTRATOR process such as lymphoma. RECOMMENDATIONS: 1. Continue chest tube drainage and empiric antibiotics. 2. Await cytology and flow cytometry on pleural fluid. 3. Check HIT antibodies. 4. Continue support with BiPAP and supplemental oxygen as needed. 5. CT scan of the head, as well as abdomen and pelvis, to evaluate for intracranial pathology contri buting to delirium, as well as to look for further adenopathy. /[id number]/MODL
[2017-08-19] MEDS ORDERED: CALCIUM GLUCONATE 50 ML IV ONE (11:30)
--- NOTE | 2017-08-19 14:20 | SOAPPROG ---
SOAP Progress Note Assessment/Plan: Assessment/Plan: 77 yo man who presented w fall discovered to have hypoxic resp fx from R pleural effusion 1. Effusion/pneumonia - s/p CT fluid concerning for malignant process +/-empyema cytology pending CT per pulmonology work of breathing remains a concern -pt is currently a full code on broad spectrum abx 2. mediastinal LAD - lung ca vs lymphoma high LDH concern for lymphoma pending cytology if appears to be a heme malignancy, will need a lymph node for accurate dx (or large core bx) favor CT abd/pelvis to eval extent of dz and to see if other areas of concern that may be more amenable to bx 3. ?Encephalopathy - no obvious mass but CT head w nonspecific dural thickening will need MRI brain to further characterize but would wait until more stable blood gas does not appear to be worsening so unclear why worse mentally 4. Thrombocytopenia - does appear that pt received SQH from 08/14 to 08/17 HIT ab pending; no e/o blood clot heparin products held DIC panel negative plts holding now no obvious enlarged spleen but difficult exam will follow along 08/19/17 14:13 08/19/17 14:21 Subjective: pt in SDU mentally worse today on 15L mask Objective: Vital Signs Temp Pulse Resp BP Pulse Ox 36.9 C 103 H 30 H 123/59 H 91 L 08/19/17 12:00 08/19/17 12:00 08/19/17 12:00 08/19/17 12:00 08/19/17 12:00 Microbiology 08/17/17 17:57 Gram Stain - Final Pleural Fluid - Aspirate Laboratory Results 08/19/17 02:55 08/19/17 12:30 08/18/17 08/19/17 08/20/17 05:59 05:59 05:59 Intake Total 500 1137 Output Total 2925 2400 Balance -2425 -1263 PT 16.7 SEC (12.0-15.0) H 08/18/17 18:15 INR 1.33 (0.83-1.16) H 08/18/17 18:15 Gen - disoriented, not responding to questions appropriately HEENT - face mask, no icterus CV - tach Resp - coarse BS/rhonchi (R>L) abd - distended, BS+ Ext no sig edema Neuro - nonfocal but pt disoriented ICD10 Worksheet Patient Problems: Problems Problem Status Onset Coccyx pain Acute Dehydration Acute Dyspnea Acute Fall Acute Hyperglycemia Acute Hyperkalemia Acute Leg weakness, bilateral Acute
[2017-08-19] MEDS ORDERED: SODIUM POLY SULF 15 GM/60 ML BOTTLE PR ONE (16:05)
[2017-08-19] MEDS ORDERED: D5W 1,000 ML IV SCH (16:15)
--- NOTE | 2017-08-19 17:33 | SOAPPROG ---
SOAP Progress Note Assessment/Plan: Assessment/Plan: Chest tube to water seal >1500 serosanguinous drainage out in 24 hours Worsening respiratory status Appreciate bottoming room inspector, hospitalist, oncology management Objective: Vital Signs Temp Pulse Resp BP Pulse Ox 36.1 C 106 H 20 133/63 H 98 08/19/17 15:53 08/19/17 15:53 08/19/17 15:53 08/19/17 15:53 08/19/17 16:16 Microbiology 08/14/17 15:51 Blood Culture - Final Blood 08/17/17 17:57 Gram Stain - Final Pleural Fluid - Aspirate Laboratory Results 08/19/17 02:55 08/18/17 08/19/17 08/20/17 05:59 05:59 05:59 Intake Total 500 1137 731.7 Output Total 2925 2400 Balance -2425 -1263 731.7 PT 16.7 SEC (12.0-15.0) H 08/18/17 18:15 INR 1.33 (0.83-1.16) H 08/18/17 18:15 ICD10 Worksheet Patient Problems: Problems Problem Status Onset Coccyx pain Acute Dehydration Acute Dyspnea Acute Fall Acute Hyperglycemia Acute Hyperkalemia Acute Leg weakness, bilateral Acute
--- NOTE | 2017-08-19 21:25 | SOAPPROG ---
SOAP Progress Note Assessment/Plan: Assessment: 77-YEAR-OLD MALE WITH MEDIASTINAL ADENOPATHY AND RIGHT HILAR MASS STATUS POST DRAINAGE OF A PLEURAL EFFUSION CHEST TUBE FUNCTIONING WELL WITH STILL A LARGE SEROUS FLUID OUTPUT NO AIR LEAK LDH QUITE ELEVATED CYTOLOGY PENDING Plan: CONTINUE CHEST TUBE DRAINAGE/CONSIDER BRONCHOSCOPY FOR DIAGNOSIS/ CONSIDER LYMPH NODE BIOPSY FOR DIAGNOSIS/AND CONSIDER POSSIBLE PLEURODESIS 08/19/17 21:22 Objective: Vital Signs Temp Pulse Resp BP Pulse Ox 36.1 C 98 18 157/69 H 97 08/19/17 15:53 08/19/17 18:20 08/19/17 18:20 08/19/17 18:20 08/19/17 18:20 Microbiology 08/14/17 17:51 Blood Culture - Final Blood 08/14/17 15:51 Blood Culture - Final Blood 08/17/17 17:57 Gram Stain - Final Pleural Fluid - Aspirate Laboratory Results 08/19/17 02:55 08/19/17 18:15 08/18/17 08/19/17 08/20/17 05:59 05:59 05:59 Intake Total 500 1137 731.7 Output Total 2925 2400 Balance -2425 -1263 731.7 PT 16.7 SEC (12.0-15.0) H 08/18/17 18:15 INR 1.33 (0.83-1.16) H 08/18/17 18:15 ICD10 Worksheet Patient Problems: Problems Problem Status Onset Coccyx pain Acute Dehydration Acute Dyspnea Acute Fall Acute Hyperglycemia Acute Hyperkalemia Acute Leg weakness, bilateral Acute
[2017-08-19] MEDS: INSULIN GLARGINE 100 UNITS/ML SYRINGE SC SCH (21:30)
[2017-08-19] MEDS: PRAVASTATIN SODIUM 40 MG TAB PO SCH (21:54)
[2017-08-20 01:00] LABS: PLATELET COUNT 37 10^3/uL (150-400)
[2017-08-20] MEDS: CEFEPIME HCL 2 GM in NS 100 ML IV SCH (08:47)
[2017-08-20] MEDS: INSULIN LISPRO 100 UNIT/ML SC SCH ×3 (08:48→18:16)
[2017-08-20] MEDS ORDERED: SODIUM POLY SULF 15 GM/60 ML BOTTLE PR ONE (09:04)
[2017-08-20] MEDS ORDERED: ALTEPLASE 2 MG VIAL IVP PRN (09:07)
--- NOTE | 2017-08-20 09:11 | HOSPPROG ---
Hospitalist Progress Note Assessment/Plan: 77 yo M with mechanical fall, DAVID, R sided pneumonia and profound weakness, found to have hilar LAD and suspected malignant effusion. His condition has deteriorated today and daughter (MDPYASIR) wishes to make him comfort care. AHRF: Secondary to right hilar LAD / pl effusion / poss post-obstructive PNA. 15 LPM, worsening respiratory status pleural effusion: low pH c/w empyema, concern for malignant effusion with increased LDH, cytology pending. Chest tube placed /2 due to re-accumulation after thora. Pleural fluid Cx ngtd. Oncology following. cont chest tube, management per surg cont cefepime await cytology right hilar LAD - concern for lymphoma. need tissue diagnosis. CT abd/pelvis without contrast to eval for biopsy source - reviewed with IR, no biopsy targets from Dr. De La Rosa' perspective mediastinoscopy would be next option but pt not stable for this procedure pneumonia: concern for postobstructive infection. BCxs neg. continue cefepime david: Cr 2.6 --> 1,.9 --> 2.2. ck normal volume resuscitated cont to follow thrombocytopenia: received heparin starting 08/14. plts 232 --> 53 HIT Ab pending no heparin products hyperkalemia; suspect volume depletion repeat kayexalate today hypernatremia: poor oral intake. Not much change on D5W, but BG's high d/c D5W, resume /2 NS, follow indet trop: known LAD STEMI 01/26, trop flat on asa/cad encephalopathy: multi-factorial- infection, hypoxia, suspected malignancy did poorly on cog eval w MOTOR COACH CHAUFFEUR proph: sc heparin on hold status: inpt / ICU goals of care: discussed with daughter, DPYASIR, and oncology. Even if we had a tissue diagnosis of cancer / lymphoma, pt is not a candidate for treatment. she does not want any interventions such as intubation or procedures and wishess for her father to be kept comofortable. He appears to be nearing the end of life. Comfort care planned. 30 minutes critical care Subjective: Pt remains encephalopathic. He appears more ashen throughout the day, at times with agonal breathing. No fevers. Objective: Vital Signs Temp Pulse Resp BP Pulse Ox 36.9 C 98 17 115/55 L 91 L 08/20/17 07:42 08/20/17 07:42 08/20/17 07:42 08/20/17 07:42 08/20/17 07:42 Microbiology 08/14/17 17:51 Blood Culture - Final Blood 08/14/17 15:51 Blood Culture - Final Blood 08/17/17 17:57 Gram Stain - Final Pleural Fluid - Aspirate Laboratory Results 08/20/17 00:40 08/20/17 02:10 08/19/17 08/20/17 08/21/17 05:59 05:59 05:59 Intake Total 1137 2063.7 Output Total 2400 360 Balance -1263 1703.7 PT 16.7 SEC (12.0-15.0) H 08/18/17 18:15 INR 1.33 (0.83-1.16) H 08/18/17 18:15 - Physical Exam Constitutional: chronically ill appearing Cardiovascular: regular rate and rhythym Respiratory: no respiratory distress, reduced air movement, inspiratory crackles Gastrointestinal: normoactive bowel sounds, soft, non-tender abdomen Skin: mottled Musculoskeletal: generalized weakness Psychiatric: encephalopathic ICD10 Worksheet Patient Problems: Problems Problem Status Onset Coccyx pain Acute Dehydration Acute Dyspnea Acute Fall Acute Hyperglycemia Acute Hyperkalemia Acute Leg weakness, bilateral Acute
[2017-08-20] MEDS ORDERED: 1/2 NS 1,000 ML IV SCH (09:15)
[2017-08-20] MEDS: SENNOSIDES/DOCUSATE SODIUM TAB PO SCH (09:21)
[2017-08-20 09:54] LABS: INR 1.54 (0.83-1.16); PROTIME(PATIENT) 18.6 SEC (12.0-15.0)
[2017-08-20 12:01] VITALS: BP 106/58; PULSE 94; RESP 22; TEMP 97.9; O2SAT 94
--- NOTE | 2017-08-20 12:05 | SOAPPROG ---
SOAP Progress Note Assessment/Plan: Assessment: 77-YEAR-OLD MALE WITH MEDIASTINAL ADENOPATHY AND RIGHT HILAR MASS STATUS POST DRAINAGE OF A PLEURAL EFFUSION CHEST TUBE FUNCTIONING WELL WITH STILL A LARGE SEROUS FLUID OUTPUT NO AIR LEAK LDH QUITE ELEVATED CYTOLOGY PENDING Plan: CONTINUE CHEST TUBE DRAINAGE/CONSIDER BRONCHOSCOPY FOR DIAGNOSIS/ CONSIDER LYMPH NODE BIOPSY FOR DIAGNOSIS/AND CONSIDER POSSIBLE PLEURODESIS 08/19/17 21:22 08/20/17 12:02 MINIMAL CHEST TUBE DRAINAGE TODAY AND NO AIR LEAK/PATIENT IS POORLY RESPONSIVE AND SOMNULENT/ HEAD CT IS NEGATIVE/CHEST X-RAY SHOWS LUNG IS WELL EXPANDED MAY NEED TISSUE BIOPSY FOR DIAGNOSIS/BRONCHOSCOPY VERSUS IR BIOPSY VERSUS LAPAROSCOPIC BIOPSY/I FEEL NO SIGNIFICANT PALPABLE NODES THAT WOULD BE EASY TO BIOPSY Objective: Vital Signs Temp Pulse Resp BP Pulse Ox 36.6 C 94 22 H 106/58 L 94 08/20/17 11:57 08/20/17 11:57 08/20/17 11:57 08/20/17 11:57 08/20/17 11:57 Microbiology 08/17/17 17:57 Gram Stain - Final Pleural Fluid - Aspirate Body Fluid Culture - Final 08/14/17 17:51 Blood Culture - Final Blood 08/14/17 15:51 Blood Culture - Final Blood Laboratory Results 08/20/17 09:15 08/20/17 02:10 08/19/17 08/20/17 08/21/17 05:59 05:59 05:59 Intake Total 1137 2063.7 Output Total 2400 360 Balance -1263 1703.7 PT 18.6 SEC (12.0-15.0) H 08/20/17 09:15 INR 1.54 (0.83-1.16) H 08/20/17 09:15 ICD10 Worksheet Patient Problems: Problems Problem Status Onset Coccyx pain Acute Dehydration Acute Dyspnea Acute Fall Acute Hyperglycemia Acute Hyperkalemia Acute Leg weakness, bilateral Acute
--- NOTE | 2017-08-20 12:37 | GCON ---
[f rep st] CONSULTATION DATE OF CONSULTATION: 08/20/2017 CHIEF COMPLAINT: Trauma consult for fall. HISTORY OF PRESENT ILLNESS: This is a 77-year-old male, admitted to the medical service since August 14. Briefly per chart review, the patient presented to the emergency department on the morning of the , complaining of weakness and a fall, stating that he had fallen 2 days prior to his presentation at the hospital at that point in time. He stated that prior to that he had been evaluated at the [facility] and was subsequently placed on pain medications for what was described as pleurisy. At any rate, he also complained of lower back pain on admission. Since that point in time, the patient has decompensated in the intensive care unit. He is currently not intubated, but he is on high-flow non-rebreather Oxy mask therapy and has required chest tube thoracostomy for a very large pleural effusion on the right side. On my examination, the patient responds only to pain with withdrawal. He does not verbally communicate at this point in time. The remainder of this consultation is mostly from imaging review, chart review and discussions with nursing. PAST MEDICAL HISTORY: Hypertension, anemia, insulin-dependent diabetes, hyperlipidemia, coronary artery disease status post stenting in 2011, after an IN, gastroesophageal reflux disease, back pain and chronic respiratory failure on 2 L. PAST SURGICAL HISTORY: Per chart review, shows a right-sided chest tube thoracostomy placed 2 days ago. No other apparent surgeries. CURRENT MEDICATIONS: Full medication review was performed in [facility]. FAMILY HISTORY: Unobtainable. SOCIAL HISTORY: [facility] patient, lives by himself. Has 2 daughters, 1 who lives in the area, 1 who lives out of state. Per chart review, does not appear as though the patient drinks or smokes or does illicit drugs. REVIEW OF SYSTEMS: Unobtainable. PHYSICAL EXAMINATION: VITAL SIGNS: Blood pressure 115/55, temperature 36.9, heart rate 98, and he is 91% on 15 L Oxymizer Oxy mask. CONSTITUTIONAL: He does not appear to be in any distress. However, he is only responsive to pain at this time. EYES: His pupils are equal, round, and reactive to light and accommodation. His sclerae are anicteric and his extraocular movements appear to be intact. EARS, NOSE, MOUTH AND THROAT: He has dry mucous membranes. Unclear whether or not his hearing is normal, but he did open his eyes to command. No oral mucosal ulcers. CARDIOVASCULAR: He currently has a regular rate, without murmurs. RESPIRATORY: Diminished on the right. Chest tube in place. Tidaling appropriately. GI: His abdomen is soft, nondistended. SKIN: Warm, normal color, without rashes. MUSCULOSKELETAL: Unclear whether or not he has normal strength. He opens his eyes to command. He does not appear to have any overt muscular tenderness and he does have normal joint range of motion. NEUROLOGIC: Again, he is obtunded. He is alert and oriented x0. PSYCH: Obtunded. LYMPH, HEMATOLOGIC AND IMMUNOLOGIC: No cervical or groin lymphadenopathy appreciated. LABS: Include CBC with a white count at 3.9, H and H is 7.5 and 24.5, platelets 37,000. Elevated INR at 1.54. An arterial blood gas showing a low CO2 of 28, a pH of 7.4, with a deficit of 5.8. Chemistry shows an elevated sodium at 149, an elevated potassium of 5.5, an elevated creatinine at 2.2, and an elevated blood glucose at 246. IMAGING: The images of which were personally reviewed by me, include a plain film of his chest, as well as a plain film of his lumbar spine and sacrum, in addition to a chest, abdomen and pelvis CT scan. Briefly the plain films show what appeared to be age indeterminate T12-L1 compression fractures which are corroborated by the CT scan of the abdomen and pelvis, without any other overt traumatic findings. The CT scan of the chest shows prior to chest tube placement a worsening large right pleural effusion, with right hilar infracarinal and prevascular lymphadenopathy, suspicious for underlying malignancy in the right chest. ASSESSMENT AND PLAN: 77-year-old male with multiple medical problems. Currently in pulmonary failure in the intensive care unit status post fall 2 days prior to admission on the . I have been asked to evaluate the patient from a trauma standpoint, again the patient is unable to participate in my examination. It is unclear whether or not he still has back pain, but per nursing conversations it does not sound like he had complained of back pain when he was more awake previously. At any rate, I identify no other injuries at this point in time. I have reviewed his images and do likely feel the T12- L1 compression fractures are acute. I have asked the neurosurgical services to evaluate the images and the patient, however, I do not feel that surgical intervention will be warranted given his significant medical comorbidities. /[id number]/MODL MTDD
--- NOTE | 2017-08-20 15:42 | SOAPPROG ---
SOAP Progress Note Assessment/Plan: Assessment/Plan: 77 yo man who presented w fall discovered to have hypoxic resp fx from R pleural effusion 1. Effusion/pneumonia - s/p CT fluid concerning for malignant process +/-empyema cytology pending CT per pulmonology work of breathing worsening and pt declining discussion w pt's daughter about limited options given failure to get diagnosis and likelihood that he would not survive treatment w infection, etc 2. mediastinal LAD - lung ca vs lymphoma high LDH concern for lymphoma but carcinoma still possible pending cytology 3. ?Encephalopathy - no obvious mass but CT head w nonspecific dural thickening would need MRI to further characterize 4. Thrombocytopenia - does appear that pt received SQH from 08/14 to 08/17 HIT ab pending; no e/o blood clot heparin products held DIC panel negative no obvious enlarged spleen but difficult exam Pt made comfort care to today which I am in agreement with d/w Dr Rodriguez and Dr Mcwilliams 08/19/17 14:13 08/19/17 14:21 08/20/17 15:38 08/20/17 15:40 Subjective: agonal breathing and altered Objective: Vital Signs Temp Pulse Resp BP Pulse Ox 36.6 C 94 22 H 106/58 L 94 08/20/17 11:57 08/20/17 11:57 08/20/17 11:57 08/20/17 11:57 08/20/17 11:57 Microbiology 08/17/17 17:57 Gram Stain - Final Pleural Fluid - Aspirate Body Fluid Culture - Final 08/14/17 17:51 Blood Culture - Final Blood 08/14/17 15:51 Blood Culture - Final Blood Laboratory Results 08/20/17 09:15 08/20/17 02:10 08/19/17 08/20/17 08/21/17 05:59 05:59 05:59 Intake Total 1137 2063.7 386 Output Total 2400 360 Balance -1263 1703.7 386 PT 18.6 SEC (12.0-15.0) H 08/20/17 09:15 INR 1.54 (0.83-1.16) H 08/20/17 09:15 face mask pt unresponsive to questions agonal breathing ICD10 Worksheet Patient Problems: Problems Problem Status Onset Coccyx pain Acute Dehydration Acute Dyspnea Acute Fall Acute Hyperglycemia Acute Hyperkalemia Acute Leg weakness, bilateral Acute
[2017-08-20] MEDS ORDERED: LORazepam 2 MG/ML INJ IVP PRN (16:06)
--- NOTE | 2017-08-20 16:14 | ASMTCMCOM ---
CM Note CM Note Notes: Spoke with Chaplain Giovanni, who states the family has requested a family meeting to determine patient's direction of care. Giovanni will notify case managment when they get the meeting scheduled. CM will follow. Date Signed: 08/20/2017 04:14 PM Electronically Signed By:Elsa Johnson LCSW
--- NOTE | 2017-08-21 10:34 | ASDISCHSUM ---
Discharge Information Plan Status:SNF Medically Cleared to Leave: Discharge Date:08/20/2017 08:05 PM D/C Disposition:Group Home Facility ADT D/C Disposition: Projected Discharge Date:08/17/2017 11:00 AM Transportation at D/C: Discharge Delay Reason: Follow-Up Date:08/17/2017 11:00 AM Discharge Slot: Final Diagnosis: Placement Information Referral Type:*Halfway/SNF Referral ID:[id number] Provider Name: Address 1: Phone Number: Address 2: Fax Number: City: Selection Factors: State: Patient Contact Information Contact Name:TONNY Relationship:Daughter Address: Home Phone: Work Phone: City: [facility] Phone: [facility] Code: Email: Financial Information Financial Class: Primary Plan Desc:MEDICARE INPATIENT Primary Plan Number:[id number] Secondary Plan Desc: Secondary Plan Number: Assessment Information [employer] Progress Note CM Note CM Note Notes: Pt admitted after a fall - stated he tripped over something at home and had difficulty getting up 2/2 weakness. He recently was diagnosed with PNA and was on ABX. Pt lives in a trailer in [place] and has friends and family around. Hx CAD. Agreeable to SNF d/c. Discussed options - he would like to stay in [place] and felt that [facility] was the most convenient. Sent referrals to and Randy Simeon. PASRR done. will continue to follow for any d/c needs. Date Signed: 08/15/2017 11:34 AM Electronically Signed By:ALAN Lux [facility] CM Progress Note CM Note CM Note Notes: 08/16/2017 Case Management Note Pt accepted to [facility]. Case Management d/c poc: to [facility] when medically stable. Case Management to follow. Date Signed: 08/16/2017 04:07 PM Electronically Signed By:Adriana Gilmore RN [facility] CM Progress Note CM Note CM Note Notes: Plan continues to be to discharge to [facility]. Date Signed: 08/18/2017 04:24 PM Electronically Signed By:Mary Hendrix LCSW [facility] CM Progress Note CM Note CM Note Notes: Spoke with Chaplain Giovanni, who states the family has requested a family meeting to determine patient's direction of care. Giovanni will notify case managment when they get the meeting scheduled. CM will follow. Date Signed: 08/20/2017 04:14 PM Electronically Signed By:Elsa oJhnson LCSW Intervention Information
== END 2017-08-20 20:05 | disposition expired | DRG 193 ==
LOC: EDUNIT# → F2W 14:22 → F2N 08-17 22:50 → F1N 08-20 19:42
PROVIDERS: ADMIT Student in an Organized Health Care Education/Training Program; ATTEND Student in an Organized Health Care Education/Training Program
PROC: 0W993ZX Drainage of Right Pleural Cavity, Percutaneous Approach, Diagnostic (ICD-10-PCS; principal; 2017-08-17)
PROC: 02HV33Z Insertion of Infusion Device into Superior Vena Cava, Percutaneous Approach (ICD-10-PCS; 2017-08-20)
DX: J18.9 Pneumonia, unspecified organism (principal); C85.12 Unspecified B-cell lymphoma, intrathoracic lymph nodes; J90 Pleural effusion, not elsewhere classified; J96.21 Acute and chronic respiratory failure with hypoxia; N17.9 Acute kidney failure, unspecified; E87.5 Hyperkalemia; E87.0 Hyperosmolality and hypernatremia; D69.6 Thrombocytopenia, unspecified; R41.0 Disorientation, unspecified; E11.9 Type 2 diabetes mellitus without complications; I10 Essential (primary) hypertension; E78.00 Pure hypercholesterolemia, unspecified; I25.10 Atherosclerotic heart disease of native coronary artery without angina pectoris; K21.9 Gastro-esophageal reflux disease without esophagitis; I25.2 Old myocardial infarction; Z79.4 Long term (current) use of insulin; Z95.5 Presence of coronary angioplasty implant and graft; Z87.891 Personal history of nicotine dependence; Z99.81 Dependence on supplemental oxygen; Z66 Do not resuscitate
CPT/HCPCS: 82947-QW; 86022-90; 92507-GN; 92523-GN; 97161-GP; 97166-GO; 97530-GO; 97530-GP; C1751; G8978-GP-CL; G8979-GP-CJ; G8987-GO-CK; G8988-GO-CI; G9168-GN-CL; G9169-GN-CJ; J0456; J0610; J0692; J0696; J1815; J1940; J2060; Q9967